=== PATIENT | female | born 1975 | race Caucasian/White ===

== ENCOUNTER 2018-10-22 05:18 | Day surgery (SDC) | payer OTHER ==
[2018-10-22 06:17] LABS: ADD MAN DIFF? NO
[2018-10-22 06:24] LABS: WHITE BLOOD COUNT 9.9 10^3/ul (4.8-10.8)
[2018-10-22 06:24] LABS: BASOPHIL # 0.1 10^3/ul (0.0-0.1); BASOPHILS % 0.8 % (0.0-2.0); EOSINOPHILS # 0.2 10^3/ul (0.0-0.5); EOSINOPHILS % 2.4 % (0.0-7.0); HEMATOCRIT 37.8 % (37.0-47.0); HEMOGLOBIN 12.4 g/dl (12.0-16.0); LYMPHOCYTES # 2.1 10^3/ul (0.8-2.9); LYMPHOCYTES % 20.9 % (15.0-51.0); MEAN CORPUSCULAR HEMOGLOBIN 27.9 pg (29.0-33.0); MEAN CORPUSCULAR HGB CONC 32.8 g/dl (32.0-37.0); MEAN CORPUSCULAR VOLUME 84.9 fl (82.0-101.0); MEAN PLATELET VOLUME 12.8 fl (7.4-10.4); MONOCYTE # 0.6 10^3/ul (0.3-0.9); MONOCYTES % 5.9 % (0.0-11.0); NEUTROPHIL # 6.9 10^3/ul (1.6-7.5); NEUTROPHILS % 69.7 % (39.0-77.0); PLATELET COUNT 244 10^3/UL (140-415); RED BLOOD COUNT 4.45 10^6/ul (4.20-5.40)
[2018-10-22 06:45] LABS: ALANINE AMINOTRANSFERASE 24 IU/L (13-69); ALBUMIN 4.3 g/dl (3.3-4.9); ALBUMIN/GLOBULIN RATIO 1.19; ALKALINE PHOSPHATASE 66 IU/L (42-121); ANION GAP 11 (5-13); ASPARTATE AMINO TRANSFERASE 25 IU/L (15-46); BILIRUBIN,INDIRECT 0.4 mg/dl (0-1.1); BILIRUBIN,TOTAL 0.4 mg/dl (0.2-1.3); BLOOD UREA NITROGEN 8 mg/dl (7-20); CALCIUM 9.2 mg/dl (8.4-10.2); CARBON DIOXIDE 22 mmol/L (21-31); CHLORIDE 107 mmol/L (97-110); CREATININE 0.48 mg/dl (0.44-1.00); Estimated GFR > 60 mL/min (>60); GLUCOSE 103 mg/dl (70-220); POTASSIUM 4.2 mmol/L (3.5-5.1); SODIUM 140 mmol/L (135-144); TOTAL PROTEIN 7.9 g/dl (6.1-8.1)
[2018-10-22] MEDS ORDERED: CEFAZOLIN 2 GM/50 ML (PMX) 50 ML IVPB (07:00)
[2018-10-22] MEDS ORDERED: LACTATED RINGER'S 1,000 ML IV (07:00)
[2018-10-22] MEDS ORDERED: PROPOFOL 100 ML (07:29)
[2018-10-22] MEDS ORDERED: LIDOCAINE 2% (SDV) 5 ML INJ (07:30)
[2018-10-22] MEDS ORDERED: DEXAMETHASONE 4 MG/ML 5 ML INJ (07:35)
[2018-10-22] MEDS ORDERED: ONDANSETRON 4 MG INJ ×2 (07:35→08:32)
[2018-10-22] MEDS ORDERED: CEFAZOLIN 1 GM INJ (07:35)
[2018-10-22 07:56] LABS: INR 0.87; PARTIAL THROMBOPLASTIN TIME 25.8 Sec (23.0-35.0); PROTIME 11.9 Sec (11.9-14.9); PT RATIO 0.9
[2018-10-22] MEDS: BUPIVACAINE 0.5% (SDV) 30 ML INJ (08:10)
[2018-10-22] MEDS ORDERED: ALBUTEROL 0.083% (NEB) 2.5 MG/3 ML AMP HHN (08:30)
[2018-10-22] MEDS ORDERED: LABETALOL HCL 20MG INJ IV (08:30)
[2018-10-22] MEDS ORDERED: MIDAZOLAM 1 MG/ML 2 ML INJ IV (08:30)
[2018-10-22] MEDS ORDERED: EPHEDrine 25 MG/5 ML SYG IV (08:30)
[2018-10-22] MEDS ORDERED: DIPHENHYDRAMINE 50 MG INJ IV (08:30)
[2018-10-22] MEDS ORDERED: FENTAnyl 50 MCG/ML VIAL IV ×2 (08:30)
[2018-10-22] MEDS ORDERED: KETOROLAC 30 MG INJ IV (08:30)
[2018-10-22] MEDS ORDERED: OXYCODONE/ACETAMINOPHEN (5/325) TAB PO ×2 (08:30)
[2018-10-22] MEDS ORDERED: hydrALAzine 20 MG INJ IV (08:30)
[2018-10-22] MEDS ORDERED: MEPERIDINE 25 MG INJ (08:32)
[2018-10-22] MEDS ORDERED: FENTAnyl 50 MCG/ML VIAL (08:33)
[2018-10-22] MEDS: FENTAnyl 50 MCG/ML VIAL IV ×2 (08:42→08:53)
[2018-10-22] MEDS: MEPERIDINE 25 MG INJ IV (08:43)
[2018-10-22] MEDS: ONDANSETRON 4 MG INJ IV (08:43)
== END 2018-10-22 10:00 | disposition home or self-care (01) ==
LOC: SDS 05:18
DX: M67.432 Ganglion, left wrist (principal)
CPT/HCPCS: 25112; 71045; 80053; 85025; 85610; 85730